=== PATIENT | male | born 1960 | race Caucasian/White ===

== ENCOUNTER → 2024-02-14 07:15 | Outpatient (REF) | payer MEDICARE, OTHER, SELFPAY | LOC: MRI 3T 07:15 | PROVIDERS: ATTENDING PHYSICIAN Pain Medicine Interventional Pain Medicine; FAMILY PHYSICIAN Family Medicine | DX: M54.16 Radiculopathy, lumbar region (principal) | CPT/HCPCS: 72148 ==

== ENCOUNTER → 2024-03-18 11:53 | Outpatient (REF) | payer MEDICARE, OTHER, SELFPAY | LOC: HWCARD 11:53 | PROVIDERS: ATTENDING PHYSICIAN Pain Medicine Interventional Pain Medicine; FAMILY PHYSICIAN Family Medicine | DX: Z01.818 Encounter for other preprocedural examination (principal) | CPT/HCPCS: 93005 ==

== ENCOUNTER → 2024-04-02 10:55 | Outpatient (REF) | payer MEDICARE, OTHER, SELFPAY | LOC: REG 10:55 | PROVIDERS: ATTENDING PHYSICIAN Family Medicine | DX: D49.2 Neoplasm of unspecified behavior of bone, soft tissue, and skin (principal) | CPT/HCPCS: 73000 ==

== ENCOUNTER → 2024-09-25 14:25 | Outpatient (REF) | payer MEDICARE, OTHER, SELFPAY | LOC: RAD 14:25 | PROVIDERS: ATTENDING PHYSICIAN Family Medicine | DX: R05.3 Chronic cough (principal) | CPT/HCPCS: 71046 ==

== ENCOUNTER → 2024-10-07 09:16 | Outpatient (REF) | payer MEDICARE, OTHER, SELFPAY | LOC: RCS 09:16 | PROVIDERS: ATTENDING PHYSICIAN Pain Medicine Interventional Pain Medicine; FAMILY PHYSICIAN Family Medicine | DX: Z01.818 Encounter for other preprocedural examination (principal) | CPT/HCPCS: 93005 ==

== ENCOUNTER 2025-04-22 11:31 | Emergency (ER) | payer MEDICARE, OTHER, SELFPAY ==
[2025-04-22 11:38] VITALS: BP 128/83
[2025-04-22 11:49] VITALS: BMI 22.5
--- NOTE | 2025-04-22 11:52 | EDRN ---
Patient states he has lost 12 pounds in the last 5 weeks without trying. Mr. Pagan states he has been under a lot of stress and not eating well. Patient's mother 2 months ago and has been having a lot of increased stress at work. Patient
offered crisis team as well as medical care but refused at this time.
--- NOTE | 2025-04-22 12:27 | ED.GENMED ---
History of Present Illness
General
Chief Complaint: Chest Pain
Time Seen by Provider: 04/22/25 11:48
History of Present Illness
History of Present Illness:
65-year-old male with history of GERD presents to the emergency department for evaluation of intermittent chest pain and dyspnea on exertion for the past 2 to 3 weeks. He notes that he has some shortness of breath when walking up a flight of
stairs, rarely if ever has any symptoms at rest. Currently presents with mild chest pain but has been improving throughout the morning. No radiation of pain to the left arm or to the back. Nonpleuritic. No associated fevers or chills. No
personal history of hypertension, hyperlipidemia, tobacco abuse, or diabetes and denies any family history of precocious coronary disease. Does note that due to significant work stress as well as the loss of his mother recently he feels many of his
symptoms can be attributed to severe stress
Past History
Past History
ED Past Medical History: GERD and Other (Back pain, arthritis)
ED Past Surgical History: Orthopedic and Other (Hernia repair)
Social History
Tobacco: Non-smoker
Drug: None
Personal:
Living: with family
Employment: Employed
Family History
Family History: Other (No significant)
Review of Systems
Review of Systems
Allergies reviewed?: Yes
All Other Systems: ROS reviewed and negative except as documented in HPI and ROS
Phy Exam
Physical Exam
Physical Exam:
GEN: Well appearing, NAD, WDWN
HEENT: Oral mucosa moist, no scleral icterus
Cardiac: Regular rate and rhythm, no murmurs
Lung: No respiratory distress, no tachypnea, lungs clear to auscultation bilaterally
MSK: No gross deformity or injuries
Skin: Good color, no pallor or jaundice, no rashes
Neuro: AO x3, moves all extremities freely
Psych: Calm, cooperative
Scores
Heart Score for Chest Pain Patients
STEMI patient?: No
History: Highly Suspicious
ECG: Normal
Age: >/= 65 years
Risk Factors: No Risk Factors
Troponin: </= Normal Limit
Heart Score for Chest Pain Patients: 4
Heart Score Risk: 20.3% MACE over next 6 weeks
Course
Orders/Labs/Results
Orders:
Orders
04/22/25 11:32
ECG [Electrocardiogram (*1)] Urgent
Reason for Study: Chest Pain
EKG- Treatment ONCE
04/22/25 11:57
CR Chest - 2 Views Urgent
Comment:
Reason For Exam: chest pain
04/22/25 12:10
Complete Blood Count/No Diff Urgent
Comprehensive Metabolic Panel Urgent
Troponin I Urgent
Abnormal Lab Results
04/22/25
12:10
RBC 4.37 L 10^6/uL
(4.70-6.10)
MCV 94.5 H fL
(80.0-94.0)
MCH 31.8 H pg
(27.0-31.0)
Potassium 5.2 H mmol/L
(3.5-5.1)
Chloride 108 H mmol/L
(98-107)
04/22/25 12:10
04/22/25 12:10
Vital Signs
Initial and Last Documented VS:
Initial Vital Signs
Temp Pulse Resp BP Pulse Ox
97.9 F 52 18 128/83 100
04/22/25 11:38 04/22/25 11:38 04/22/25 11:38 04/22/25 11:38 04/22/25 11:38
Last Documented Vital Signs
Temp Pulse Resp BP Pulse Ox
97.9 F 55 16 128/83 100
04/22/25 11:38 04/22/25 13:15 04/22/25 13:15 04/22/25 11:38 04/22/25 13:15
MDM/Problems Addressed
MDM/Problems Addressed:
Patient does have concerning story with exertional pain however his symptoms are stable with no rest symptoms currently. Will refer through the chest pain hotline to cardiology for further workup of CAD
Comment
Comment:
EKG independently interpreted by me shows a sinus bradycardia at a rate of [address] changes concerning for ischemia
*Pulse Oximetry
SaO2: 99
Oxygen Mode of Delivery: Room air
Patient hypoxic: no
*Critical Care Note
Total Time (30-74mins, 75-104mins- exclusive of procedures): Not Applicable
ED Attending Note
-
Portions of this chart may have been created with voice recognition software.� Occasional wrong word or��sound alike� substitutions may have occurred due to the inherent limitations of voice recognition software.
Discharge Plan
Departure
Patient Disposition: Home (Routine Discharge)
Date of Disposition: 04/22/25
Time of Disposition: 13:21
Patient with high blood pressure during this ER visit?: No
Discharge Problem:
Chest pain, exertional
Instructions: Chest Pain DCA Follow Up
Prescriptions:
No Action
docusate sodium 100 mg Capsule
100 mg PO BID Qty: 1 0RF
sennosides [senna] 8.6 mg Tablet
17.2 mg PO BID Qty: 2 0RF
tizanidine 2 mg capsule
2 mg PO TID Qty: 30 0RF
Rx Instructions:
*Rx provided by Lisa Dodson
oxycodone-acetaminophen [Percocet] 10-325 mg tablet
1 tab PO Q6H PRN (Reason: moderate-severe pain) Qty: 30 0RF
Rx Instructions:
1/2 tab moderate pain or 1 if severe
Rx Mary Dodson
Referrals:
Dhaval Espinal MD [Active, Cardiology] - Call in 1-3 days for appt
Activity Restrictions/Additional Instructions:
Begin taking 81 mg chewable aspirin once daily for prevention purposes until you follow-up with cardiology
Avoid excessive exertion until cardiology follow-up
Interventions
Interventions:
*Risk Screen - Suicide Last Done: 04/22/25 11:38
*General Assessment Last Done: 04/22/25 11:51
*Neglect/Abuse Screening Last Done: 04/22/25 11:38
*ED- Fall Risk Assessment Last Done: 04/22/25 11:51
*ED COVID-19 Vaccine History Last Done: 04/22/25 11:51
*Nursing Disposition Last Done: 04/22/25 13:29
ED- Cardiac Assessment Last Done: 04/22/25 12:40
Discharge Date and Time
Discharge Date/Time: 04/22/25 13:29
Print Language: PERSIAN
[2025-04-22 12:31] LABS: Hematocrit 41.3 % (39.0-52.0); Hemoglobin 13.9 g/dL (13.0-18.0); Mean Corp Hgb Conc. 33.7 g/dL (33.0-37.0); Mean Corpuscular Hgb 31.8 pg (27.0-31.0); Mean Corpuscular Volume 94.5 fL (80.0-94.0); Mean Platelet Volume 9.7 fL (7.4-10.4); Platelet Count 192 10^3/uL (130-400); Red Blood Cell Count 4.37 10^6/uL (4.70-6.10); Red Cell Dist. Width 13.2 % (11.5-14.5)
[2025-04-22 12:51] LABS: ALT (SGPT) 16 U/L (0-50); AST (SGOT) 21 U/L (17-59); Alkaline Phosphatase 54 U/L (38-126); Blood Urea Nitrogen 18 mg/dl (9-20); Calcium 9.2 mg/dl (8.4-10.2); Carbon Dioxide 29 mmol/L (22-30); Chloride 108 mmol/L (98-107); Estimated Creatinine Clearance 84 ml/min; Glucose 91 mg/dl (70-99); Potassium 5.2 mmol/L (3.5-5.1); Sodium 140 mmol/L (135-145); Total Bilirubin 0.5 mg/dl (0.2-1.3); Total Protein 6.7 g/dl (6.3-8.2); eGFR > 60.00
[2025-04-22 13:02] LABS: Troponin I < 0.012 ng/ml
== END 2025-04-22 13:29 | disposition home or self-care (01) ==
LOC: EMR 11:31
PROVIDERS: Physician Assistant; EMERGENCY PHYSICIAN Emergency Medicine; FAMILY PHYSICIAN Family Medicine
DX: R07.89 Other chest pain (principal); R06.09 Other forms of dyspnea; K21.9 Gastro-esophageal reflux disease without esophagitis; R00.1 Bradycardia, unspecified
CPT/HCPCS: 99285; 71046; 80053; 84484; 85027; 93005

== ENCOUNTER → 2025-04-29 11:10 | Outpatient (REF) | payer MEDICARE, OTHER, SELFPAY | LOC: HWRCS 11:10 | PROVIDERS: ATTENDING PHYSICIAN Internal Medicine Cardiovascular Disease; FAMILY PHYSICIAN Family Medicine | DX: R06.02 Shortness of breath (principal) | CPT/HCPCS: 93306 ==

== ENCOUNTER → 2025-05-05 13:19 | Outpatient (REF) | payer MEDICARE, OTHER, SELFPAY | LOC: RCS 13:19 | PROVIDERS: ATTENDING PHYSICIAN Internal Medicine Cardiovascular Disease; FAMILY PHYSICIAN Family Medicine | DX: R07.89 Other chest pain (principal) | CPT/HCPCS: 93017; 93350 ==

== ENCOUNTER 2025-07-02 06:24 | Day surgery (SDC) | payer MEDICARE, OTHER, SELFPAY ==
[2025-07-02] VITALS (9 sets, daily range): BP systolic 112–141; BP diastolic 65–86; BMI 23.0
[2025-07-02] MEDS: NORMOSOL-R/PLASMALYTE-A 1000 IV (08:31)
[2025-07-02] MEDS: TYLENOL 1000 MG PO (08:33)
--- NOTE | 2025-07-02 09:58 | W.SUR.PREOP ---
Pre-Operative Surgical Note
-
I have examined this patient prior to the performance of the scheduled procedure.
The patient's condition is unchanged from the time of the current History and
Physical and the patient is able to undergo the scheduled procedure.
--- NOTE | 2025-07-02 09:58 | HP.FOC2 ---
Focused History & Physical
Chief Complaint
HPI:
Chief Complaint: Left inguinal hernia
HPI / Indication for Planned Procedure: This is a 65-year-old male who presents with bilateral inguinal and umbilical hernia, will plan for a robotic bilateral inguinal hernia repair with mesh as well as an open umbilical hernia repair.
Relevant Past Medical History: Negative
Relevant Social History: Negative
Relevant Family History: Negative
Relevant Past Surgical History: Negative
Review of Systems
Review of Pertinent Systems: All Systems Negative
Medication
See Medication form for detailed medications: Yes
Medication List (including Herbals & OTC):
meloxicam 7.5 mg tablet 7.5 mg PO DAILY 06/29/25
Penicillin Vk 500 mg PO QID 07/02/25
Medications Reviewed: Yes
Allergies and Reactions
Patient has Allergies: No
Noted Allergies and Reactions:
Allergy/AdvReac Type Severity Reaction Status Date / Time
No Known Allergies Allergy Verified 07/02/25 08:24
Pertinent Physical Exam
All Other Systems: Negative
Head/Neck: Normal
Diagnosis / Assessment
This is a 65-year-old male who presents with bilateral inguinal and umbilical hernia
Plan / Procedure
plan for a robotic bilateral inguinal hernia repair with mesh as well as an open umbilical hernia repair.
Anesthesia/Sedation to be done by Anesthesia Provider: Yes
--- NOTE | 2025-07-02 13:08 | W.IMMPOSTOP ---
Surgical Immed Post Op Note
-
Primary Surgeon: Magdiel Tristan MD
Assisting Surgeon: None
Pre-op Diagnosis: Bilateral inguinal hernias, umbilical hernia
Post-op Diagnosis: Bilateral inguinal hernias, umbilical hernia, incisional hernia
Procedure Performed:
1. Robotic bilateral inguinal hernia repair with mesh. (GIFTY approach)
2. Robotic incisional hernia repair with mesh.
3. Open primary umbilical hernia repair
Anesthesia Type: General
Specimen / Cultures: None
Estimated Blood Loss: 7 cc
Complications: None
Operative Findings: Patient was noted to have bilateral direct inguinal hernias right greater than left. He also had a midline incisional hernia likely from his prior sports hernia repair containing bladder which was carefully reduced without
injury to the underlying tissue. The direct spaces were closed/imbricated with 2-0 V-Loc 180 suture. After achieving the critical view of the MPO bilaterally the spaces were reinforced with large Bard 3D max mid weight uncoated polypropylene mesh.
The umbilical hernia defect measured 1 cm in diameter and contained preperitoneal fat. It was closed with 3 [id number] 0 Surgilon sutures.
--- NOTE | 2025-07-02 13:11 | OR.RPT ---
Operative Report
Operative Report
Patient Name: Shaw Pagan
: 1960
Date of Operation: 07/02/2025
Pre-op Diagnosis: Bilateral inguinal hernias, umbilical hernia
Post-op Diagnosis: Bilateral inguinal hernias, umbilical hernia, incisional hernia
Procedure Performed:
1. Robotic bilateral inguinal hernia repair with mesh. (GIFTY approach)
2. Robotic incisional hernia repair with mesh.
3. Open primary umbilical hernia repair
Primary Surgeon: Magdiel Tristan MD
[employer] Press Set Up Operator(s):
CONNIE Tang
Anesthesia Type: General
Specimen / Cultures: None
Estimated Blood Loss: 7 cc
Urine Output: None
Drains/Lines/Implants: Large 3D Max Bard mid weight uncoated polypropylene mesh
Indication for surgery: The patient has a history of groin pain and noted on exam to have bilateral inguinal as well as an umbilical hernia(s). Following review of therapeutic options they have elected to undergo a minimally invasive repair.
Operative Findings: Patient was noted to have bilateral direct inguinal hernias right greater than left. He also had a midline incisional hernia likely from his prior sports hernia repair containing bladder which was carefully reduced without
injury to the underlying tissue. The direct spaces were closed/imbricated with 2-0 V-Loc 180 suture. After achieving the critical view of the MPO bilaterally the spaces were reinforced with large Bard 3D max mid weight uncoated polypropylene mesh.
The umbilical hernia defect measured 1 cm in diameter and contained preperitoneal fat. It was closed with 3 [id number] 0 Surgilon sutures.
Details of the operation:
The patient was brought to the Operating Room and placed in the supine position with the arms tucked. IV antibiotics were infused and Venodyne stockings placed. Following uneventful induction of general endotracheal anesthesia, an orogastric tube
was placed. The abdomen was prepped and draped in the usual sterile fashion. The abdomen was entered using an infraumbilical access. His umbilical hernia was isolated off of the umbilical stalk and used as our entry point into the abdomen with an
8 mm trocar. Pneumoperitoneum to 15 mmHg was obtained without difficulty. We then placed two additional 8 mm ports in the left upper and right upper quadrants. We then docked the robot with a Prograsper in the left hand port and monopolar scissors
in the right. Bilateral inguinal hernias were identified. We then began by creating a flap on the right side at the level of the ASIS laterally working our way medially to the medial umbilical fold. Staying onto the peritoneum we were able to
circumferentially dissect around the hernia sac and and peel it off of the underlying spermatic cord and testicular vessels, taking care to preserve them. Medially we identified the midline pubis as well as Zack's ligament and ensured to dissect
2 cm below the pubic rim over the bladder. After exposure of the entire myopectineal orifice we identified and reduced: No indirect inguinal hernia, a moderate-sized direct inguinal hernia which was imbricated with a 2-0 V-Loc 180 suture, no
femoral hernia, and no cord lipoma. We then repeated the exact same dissection on the left side. Here we identified again no indirect or femoral hernias. There was a small cord lipoma which was reduced as well as a small direct inguinal hernia.
Medially to this however was an incarcerated piece of bladder which was carefully dissected free without injury to the underlying tissue. Sutures were identified here at the base of the repair near the pubic bone likely from his previous open
sports hernia repair. Both the direct and incisional hernias were closed with 2-0 V-Loc 180 suture. We then fixated a large 3D max mesh bilaterally with a 2-0 Vicryl stitch at coopers medially and superior laterally. The flap was then closed with
a running 2-0 barbed monocryl suture ensuring that the tail was cut flush with the medial fat pad so that no barbs were exposed bilaterally. During the closure of the flap an Angiocath was inserted and 20 cc of quarter percent Marcaine was
instilled. The area in the flap cavity was then evacuated of air confirming that the mesh was flush and there were no folds. A small rent in the peritoneum was noted and closed with 2-0 Vicryl. All needles and instruments were then removed and the
robot was undocked. The abdomen was then desufflated, and pneumoperitoneum evacuated. All skin sites were then closed with 4-0 Monocryl followed by Dermabond. Counts were correct and overall, the patient tolerated the procedure well and was taken
to the Recovery Room postoperatively in stable condition.
I was the attending physician and performed the procedure with assistance of the PA above. The assistance of CONNIE Tang was required due to the complexity of the procedure. During the procedure Florence assisted with port placement, instrument
and needle exchanges, and closure of the wound. I was present for all portions of the case, excluding skin closure.
Magdiel Tristan MD
[2025-07-02] MEDS: ERYTHROMYCIN 0.5% OPHTHALMIC OINTMENT 1 APPLIC OPHTH (15:30)
== END 2025-07-02 16:12 | disposition home or self-care (01) ==
LOC: SDS 06:24
PROVIDERS: ATTENDING PHYSICIAN Surgery
DX: K40.20 Bilateral inguinal hernia, without obstruction or gangrene, not specified as recurrent (principal); K43.2 Incisional hernia without obstruction or gangrene
CPT/HCPCS: 49650; 49592; C1781

== ENCOUNTER 2025-07-02 17:32 | Emergency (ER) | payer MEDICARE, OTHER, SELFPAY ==
[2025-07-02 17:43] VITALS: BP 127/81
--- NOTE | 2025-07-02 18:48 | ED.GENMED ---
History of Present Illness
General
Chief Complaint: Eye Problems
Time Seen by Provider: 07/02/25 18:39
History of Present Illness
History of Present Illness:
65-year-old male presents to the emergency department for evaluation of left eye discomfort and photophobia, began after waking up from a hernia operation. Was given erythromycin by anesthesiology before being discharged.
Past History
Past History
ED Past Medical History: GERD and Other (Back pain, arthritis)
ED Past Surgical History: Orthopedic and Other (Hernia repair)
Social History
Tobacco: Non-smoker
Drug: None
Personal:
Living: with family
Employment: Employed
Family History
Family History: Other (No significant)
Review of Systems
Review of Systems
Allergies reviewed?: Yes
All Other Systems: ROS reviewed and negative except as documented in HPI and ROS
Phy Exam
Physical Exam
Physical Exam:
GEN: Well appearing, NAD, WDWN
HEENT: Oral mucosa moist, no scleral icterus
Eyes: Mild left scleral injection, no obvious corneal injury, no hyphema or hypopyon. No focal fluorescein uptake on exam, no visible foreign bodies
Cardiac: Regular rate
Lung: No respiratory distress, no tachypnea
MSK: No gross deformity or injuries
Skin: Good color, no pallor or jaundice, no rashes
Neuro: AO x3, moves all extremities freely
Psych: Calm, cooperative
Course
Vital Signs
Initial and Last Documented VS:
Initial Vital Signs
Temp Pulse Resp BP Pulse Ox
98.4 F 68 16 127/81 100
07/02/25 17:43 07/02/25 17:43 07/02/25 17:43 07/02/25 17:43 07/02/25 17:43
Last Documented Vital Signs
Temp Pulse Resp BP Pulse Ox
98.4 F 68 16 127/81 100
07/02/25 17:43 07/02/25 17:43 07/02/25 17:43 07/02/25 17:43 07/02/25 18:49
MDM/Problems Addressed
MDM/Problems Addressed:
Patient's symptoms resolved after application of topical tetracaine, no foreign body or corneal abrasion was noted. He has an appointment with ophthalmology tomorrow, encouraged him to keep this, provided him with tetracaine for symptomatic relief
*Pulse Oximetry
SaO2: 100
Oxygen Mode of Delivery: Room air
Patient hypoxic: no
*Critical Care Note
Total Time (30-74mins, 75-104mins- exclusive of procedures): Not Applicable
ED Attending Note
-
Portions of this chart may have been created with voice recognition software.� Occasional wrong word or��sound alike� substitutions may have occurred due to the inherent limitations of voice recognition software.
Discharge Plan
Departure
Patient Disposition: Home (Routine Discharge)
Date of Disposition: 07/02/25
Time of Disposition: 18:48
Patient with high blood pressure during this ER visit?: No
Discharge Problem:
Acute left eye pain
Instructions: Corneal Abrasion (DC)
Prescriptions:
No Action
meloxicam 7.5 mg Tablet
7.5 mg PO DAILY
Penicillin Vk
500 mg PO QID
acetaminophen [acetaminophen] 325 mg tablet
650 mg PO Q6HPRN PRN (Reason: mild pain) Qty: 14 0RF
erythromycin 5 mg/gram (0.5 %) Ointment
0.5 inch OPHTHALMIC (EYE) QID Qty: 1 0RF
Rx Instructions:
2 drops to L eye QID
Referrals:
UNKNOWN - PT DOES,NOT KNOW [Family Provider]
Activity Restrictions/Additional Instructions:
It is not clear on exam what is causing your eye pain. Please use the anesthetic drops at most once every 1-2 hours and follow-up with your eye doctor tomorrow as we discussed
Interventions
Interventions:
*Risk Screen - Suicide Last Done: 07/02/25 17:34
*General Assessment Last Done: 07/02/25 17:34
*Neglect/Abuse Screening Last Done: 07/02/25 17:34
*Nursing Disposition Last Done: 07/02/25 19:01
Discharge Date and Time
Discharge Date/Time: 07/02/25 19:02
Print Language: [id number]
== END 2025-07-02 19:02 | disposition home or self-care (01) ==
LOC: EMR 17:32
PROVIDERS: EMERGENCY PHYSICIAN Emergency Medicine
DX: H57.12 Ocular pain, left eye (principal); K21.9 Gastro-esophageal reflux disease without esophagitis; M19.90 Unspecified osteoarthritis, unspecified site
CPT/HCPCS: 99282